=== PATIENT | male | born 1960 | race Caucasian/White ===

== ENCOUNTER 2019-09-05 07:07 | Day surgery (SDC) | payer BC ==
[~2019-09-05 07:07] MED LIST: Lactated Ringers 1,000 ML IV SCH; Sodium Chloride 0.9% 10 ML Syringe FLUSH PRN
[2019-09-05] MEDS ORDERED: Propofol 200 MG/20 ML SDV IV ONE (07:08)
[2019-09-05] MEDS ORDERED: Simethicone Drops 40 MG/0.6 ML 30 ML Bottle ONE (09:14)
--- NOTE | 2019-09-05 09:33 | PCM.OPNOTE ---
- General Post-Op/Procedure Note Date of Surgery/Procedure: 09/05/19 Operative Procedure(s): c scope with biopsy Findings: ascending colon polyp Pre Op Diagnosis: personal hx of colon polyp Post-Op Diagnosis: colon polyp Anesthesia Technique: MAC Primary Surgeon: Emery Soares Anesthesia Provider: Jaison Malhotra Pathology: ascending colon polyp Complications: None Condition: Good Free Text/Narrative:: see dictation
--- NOTE | 2019-09-05 11:20 | OR ---
DATE OF OPERATION: 09/05/2019 SURGEON: Emery Soares MD PROCEDURE PERFORMED: Colonoscopy with cold forceps biopsy. PREOPERATIVE DIAGNOSIS: Personal history of colon polyps. POSTOPERATIVE DIAGNOSIS: Polyp of the ascending colon. INDICATIONS FOR PROCEDURE: This is a 59-year-old white male, presents for his 5- year followup scope. He is currently without complaints, has the above- mentioned history. DESCRIPTION OF OPERATION: After an excellent IV sedation was administered, digital rectal exam was performed. No marked abnormality was noted. The flexible colonoscope was inserted and advanced to the cecum without difficulty. Prep was excellent. The following findings were noted. Ascending colon, small polypoid lesion biopsied with cold biopsy forceps and sent for permanent. Transverse colon, unremarkable. Descending colon, unremarkable. Sigmoid and rectum, unremarkable. Colon was deflated as the scope was removed. The patient tolerated the procedure well, was taken to recovery in good condition. Results will be sent to the patient by letter. /[id number] KEVIN/HENRY
== END 2019-09-05 10:25 | disposition home or self-care (01) ==
LOC: FB.SDS 07:07
PROVIDERS: ATTEND Surgery
DX: Z12.11 Encounter for screening for malignant neoplasm of colon (principal); K63.5 Polyp of colon; I10 Essential (primary) hypertension; E78.49 Other hyperlipidemia; Z86.010 Personal history of colon polyps; Z80.0 Family history of malignant neoplasm of digestive organs; Z79.899 Other long term (current) drug therapy; Z79.82 Long term (current) use of aspirin; Z90.49 Acquired absence of other specified parts of digestive tract
CPT/HCPCS: 45380; 88305; A9270; J2704; J7120